=== PATIENT | female | born 1985 | race Asian ===

== ENCOUNTER 2024-01-26 14:11 | Outpatient (REF) | payer BC, SELFPAY ==
[2024-01-26 14:36] LABS: MANUAL DIFF FLAG NO
[2024-01-26 14:48] LABS: Basophils Percent Auto 0.5 % (0-2); Eosinophils Absolute Auto 0.2 X10*3/uL (0.0-0.4); Eosinophils Percent Auto 2.8 % (0-4); Hematocrit 40.3 % (37.0-47.0); Hemoglobin 12.7 g/dl (12.0-16.0); Imm Gran Abs Auto 0.01 X10*3/uL (0.00-0.03); Imm Gran Pct Auto 0.2 % (0.0-0.4); Lymphocytes Absolute Auto 2.5 X10*3/uL (1.2-4.9); Lymphocytes Percent Auto 38.9 % (20-40); Mean Corpuscular HGB Conc 31.5 g/dl (31.0-35.0); Mean Corpuscular Hemoglobin 25.8 pg (27.0-33.0); Mean Corpuscular Volume 81.9 fL (80.0-98.0); Mean Platelet Volume 9.5 fL (9.4-12.3); Monocytes Absolute Auto 0.4 X10*3/uL (0.1-1.2); Monocytes Percent Auto 6.3 % (2-11); Neutrophils Absolute Auto 3.3 x10*3/uL (2.0-8.3); Neutrophils Percent Auto 51.3 % (45-73); Platelet Count 281 X10*3/uL (160-400); Red Blood Count 4.92 X10*6/uL (4.20-5.50); Red Cell Distribution Width 15.1 % (11.0-16.0); White Blood Count 6.4 X10*3/uL (4.8-10.8)
[2024-01-26 15:34] LABS: Estimated Average Glucose 114 mg/dL; Hemoglobin A1c % 5.6 % (<6.0)
[2024-01-26 15:43] LABS: Alanine Aminotransferase 17 U/L (0-31); Alkaline Phosphatase 79 U/L (39-117); Anion Gap 10 (12-20); Aspartate Amino Transferase 20 U/L (5-31); Bilirubin Total 0.4 mg/dL (0.0-1.0); Blood Urea Nitrogen 4 mg/dL (9-16); Calcium 9.5 mg/dL (8.4-10.2); Carbon Dioxide 28 mmol/L (22-29); Chloride 104 mmol/L (96-108); Cholesterol 246 mg/dL (<200); Estimated Glomerular Filt Rate > 60; Glucose Random 99 mg/dL (60-115); HDL Cholesterol 37 mg/dL (>40); LDL Cholesterol Calculated 163 mg/dL (<100); Sodium 138 mmol/L (135-145); T4 Thyroxine 7.1 ug/dL (4.5-12.0); Thyroid Stimulating Hormone 1.12 uIU/mL (0.32-4.0); Total Protein 7.4 g/dL (6.5-8.0); Triglycerides 233 mg/dL (<150); Vitamin D 25-OH Total 10.9 ng/mL (>30)
[2024-01-26 15:50] LABS: Vitamin B12 635 pg/mL (200-900)
[2024-01-27 19:49] LABS: Follicle Stimulating Hormone 4.7 mIU/mL; Prolactin 9.6 ng/mL
[2024-01-31 22:58] LABS: Testosterone, Free 4.2 pg/mL (0.1-6.4); Testosterone, Total 59 ng/dL (2-45)
[2024-02-01 16:59] LABS: Progesterone 0.2 ng/mL
== END 2024-01-26 14:12 | disposition home or self-care (01) ==
LOC: HO.LAB 14:11
PROVIDERS: PCP Internal Medicine; Visit Provider Psychiatry & Neurology Psychiatry
DX: Z13.6 Encounter for screening for cardiovascular disorders (principal); F39 Unspecified mood [affective] disorder; F41.3 Other mixed anxiety disorders; N92.6 Irregular menstruation, unspecified
CPT/HCPCS: 36415; 80053; 80061; 82306; 82607; 83001; 83036; 84144; 84146; 84402; 84403; 84436; 84443; 85025

== ENCOUNTER 2024-02-04 08:30 | Outpatient (RCR) | payer BC, SELFPAY ==
[2024-01-24 11:37] VITALS: BP 110/80; PULSE 100; TEMP 37.1
[2024-01-24 11:41] VITALS: BMI 42.3
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
--- NOTE | 2024-01-27 16:42 | HO.PHP ---
Client's case has been opened and reviewed in treatment team.
--- NOTE | 2024-02-03 15:11 | HO.PHP ---
This public relations writer checked in with pt at 1:30pm to assess for cravings. Pt was quieter today in group then previous days, less attentive and sharing less. Pt stated she has been feeling a little down. Cried last night after a concert and not certain why. Stated she felt better after crying but feeling more emotionally tired today. Pt denied feeling cravings to drink today, but some feelings of low self-worth, states being at [facility] is helpful, cravings occur outside of programming and are not constant. Pt appreciative for staff support. Pt discharging tomorrow. Discussed some of her D/C plan and home structure. Future-oriented, goal setting, actively engaging and working on her recovery. Pt reports as safe, no SI.
--- NOTE | 2024-02-04 09:59 | HO.PHPPROGNO ---
Subjective Subjective Date of Service: 02/04/24 Reason For Visit: depression,anxiety Interim History: Patient seen for follow-up, anticipating discharge at the end of program today.? Will be meeting up with provider in [address] Duffy and will be due for refills at that time. Otherwise feels depression is slowly improving. Reports no acute issues or concerns. Medication compliant, medications well-tolerated. Denies any adverse effects.? Mood is stable.? Denies any hopelessness or SI. Denies thoughts of harming self or others at this time. Denies any aggressive ideation or HI. Denies any paranoia or AH or VH. Sleep, appetite, energy stable. Medication Compliance: Yes Side effects from medications: No Attending Groups: Yes Review of Systems Acute medical concerns: No Mental Status Exam Mental Status Exam Narrative: Alert, oriented, in no acute distress. Calm, cooperative, engaged. No psychomotor agitation or neurovegetative retardation. Eye contact maintained. Mood anxious, affect variable, mood congruent. Speech normal. Thought process linear, coherent. Thought content related to stressors, denies any helplessness, hopelessness or SI.? No aggressive ideation or HI. No paranoia or delusional content elicited. No evidence of psychosis. Insight and judgment impaired. Diagnostics Vital Signs (24Hr): BMI result Body Mass Index 42.3 Assessment & Plan Assessment & Plan (1) Bipolar II disorder major depressive with atypical features: Status: Acute Code(s): F31.81 - Bipolar II disorder (2) Other mixed anxiety disorders: Status: Acute Code(s): F41.3 - Other mixed anxiety disorders (3) Post traumatic stress disorder (PTSD): Status: Acute Code(s): F43.10 - Post-traumatic stress disorder, unspecified (4) Alcohol use disorder: Status: Acute Code(s): F10.90 - Alcohol use, unspecified, uncomplicated (5) Mood disorder: Status: Acute Code(s): F39 - Unspecified mood [affective] disorder (6) Phobia, unspecified: Status: Acute Code(s): F40.9 - Phobic anxiety disorder, unspecified Plan Discharge from [facility] continue lamotrigine 25 mg qd (incr by 25 mg per week) continue naltrexone 50 mg qhs continue escitalopram 15 mg qd (?overactivation) continue melatonin continue other regular medications routine lab work reviewed will defer further medication management to outpatient provider Refills sent to pharmacy Patient educated on: diagnosis, medication risk/benefits and substance abuse Informed Consent: understands Reason for contiued partial hosp. stay Substantial Risk for: stable for discharge Certification I certify that partial hospital treatment is medically necessary due to the symptoms and problems resulting from the patient's mental illness and the failure to treat the patient at the partial hospital level of care would likely result in the patient requiring inpatient psychiatric care which could not be prevented at a less intensive level of care. Total time managing care of this patient today __30__ minutes. Discharge Plan Discharge Attending provider: Gayathri Olivera Additional Instructions: Jaleel has an OP therapist Tabitha Gilbert through [facility] on [facility]. Jaleel has a med provider, Smiley Duffy through [facility], in which her next scheduled appointment is February 23, 2024 at 4 PM. Medications: New naltrexone 50 mg tablet 50 mg PO .QHS Qty: 30 0RF escitalopram oxalate 10 mg tablet 15 mg PO DAILY 15 Days Qty: 23 0RF lamotrigine 25 mg tablet 25 mg PO DAILY 14 Days Qty: 14 0RF Continued esomeprazole magnesium 40 mg capsule,delayed release(DR/EC) 40 mg PO DAILY hydrochlorothiazide 12.5 mg capsule 12.5 mg PO DAILY melatonin 1 mg Tablet 1 mg PO BEDTIME PRN (Reason: Insomnia) Patient Comments: Patient stated she was taking melatonin in the hospital. Discontinued naltrexone 50 mg Tablet 50 mg PO DAILY Patient Comments: Nationwide shortage. Her pharmacy did not have it in stock. escitalopram oxalate 10 mg tablet 15 mg PO DAILY Patient Comments: Patient reports her prescriber increased from 10 mg to 15 mg daily. Rx Instructions: 1.5 tab daily. Stand Alone Forms: Patient Portal Discharge page Patient Education: Mood Disorders (DC) Print Language: Uzbek
== END 2024-02-04 23:59 | disposition home or self-care (01) ==
LOC: HO.PHPA 08:30
PROVIDERS: Visit Provider Psychiatry & Neurology Psychiatry
DX: F31.81 Bipolar II disorder (principal); F43.10 Post-traumatic stress disorder, unspecified; F41.3 Other mixed anxiety disorders; F40.9 Phobic anxiety disorder, unspecified; F10.90 Alcohol use, unspecified, uncomplicated; Z79.899 Other long term (current) drug therapy
CPT/HCPCS: 90791; 90853